=== PATIENT | male | born 1940 | race Caucasian/White ===

== ENCOUNTER 2021-03-25 20:56 | Emergency (ER) | payer MEDICARE, OTHER ==
[~2021-03-25] VITALS: Ht 177.8 cm; Wt 65.8 kg
--- NOTE | 2021-03-25 21:30 | NUR ---
CARMITARA PT C/O ABD PAIN/ DIARRHEA X 3 DAYS FROM ZOE
--- NOTE | 2021-03-25 21:50 | NUR ---
LABS COLLECTED AND SENT TO LAB
[2021-03-25 22:09] LABS: BASOPHILS # (AUTO) 0.1 K/uL (0.0-0.2); BASOPHILS % (AUTO) 0.5 % (0.0-2.0); EOSINOPHILS % (AUTO) 0.8 % (0.0-6.0); HEMATOCRIT 39 % (39-51); HEMOGLOBIN 12.9 g/dL (13.5-17.5); LYMPHOCYTES # (AUTO) 1.6 K/uL (0.8-4.8); LYMPHOCYTES % (AUTO) 13.4 % (20.0-44.0); MEAN CORPUSCULAR HGB CONC 33 g/dl (31.0-36.0); MEAN CORPUSCULAR VOLUME 88 fL (80-96); MONOCYTES # (AUTO) 1.1 K/uL (0.1-1.30); MONOCYTES % (AUTO) 8.7 % (2.0-12.0); NEUTROPHILS # (AUTO) 9.4 K/uL (1.8-8.9); NEUTROPHILS % (AUTO) 76.6 % (43.0-81.0); PLATELET COUNT (AUTO) 246 K/uL (150-450); RED BLOOD CELL COUNT(AUTO) 4.44 MIL/uL (4.5-6.0); WHITE BLOOD COUNT (AUTO) 12.2 K/uL (4.3-11.0)
[2021-03-25 22:23] LABS: CALCIUM, SERUM 9.2 mg/dL (8.5-10.1); CARBON DIOXIDE 26 mmol/L (21-32); CHLORIDE 102 mmol/L (98-107); CREATININE 0.9 mg/dL (0.6-1.3); GLUCOSE 183 mg/dL (74-106); POTASSIUM 4.3 mmol/L (3.5-5.1); SODIUM SERUM 140 mmol/L (136-145); UREA NITROGEN, BLOOD 30 mg/dL (7-18)
[2021-03-25 22:29] LABS: ALANINE AMINOTRANSFERASE 21 U/L (12-78); ALBUMIN 3.4 g/dL (3.4-5.0); ALKALINE PHOSPHATASE 148 U/L (46-116); ASPARTATE AMINOTRANSFERASE 30 U/L (15-37); BILIRUBIN,DIRECT 0.1 mg/dL (0.0-0.2); BILIRUBIN,TOTAL 0.6 mg/dL (0.2-1.0); LIPASE 74 U/L (73-393); TOTAL PROTEIN, SERUM 6.9 g/dL (6.4-8.2)
--- NOTE | 2021-03-25 22:40 | NUR ---
URINE COLLECTED AND SENT TO LAB
[2021-03-25] MEDS ORDERED: CT SWABBABLE VALVE TRANS SET 1 EA INFUS.SET MC ONE (22:56)
[2021-03-25] MEDS ORDERED: IV NS 0.9% 250 ML IV ONE (22:56)
[2021-03-25] MEDS ORDERED: IOHEXOL-300 100 ML VIAL IV ONE ×2 (22:56→23:19)
[2021-03-25 22:58] LABS: BILIRUBIN,URINE SMALL (NEGATIVE); COLOR,URINE YELLOW (YELLOW); LEUKOCYTE ESTERASE ,URINE NEGATIVE (NEGATIVE); NITRITE, URINE NEGATIVE (NEGATIVE); PROTEIN,URINE TRACE mg/dl (NEGATIVE); UGLUCOSE NEGATIVE (NEGATIVE); UROBILINOGEN,URINE 0.2 EU/dL (0.2)
[2021-03-25] MEDS ORDERED: IV LR 1000 ML 1,000 ML IV ONE (23:00)
--- NOTE | 2021-03-25 23:24 | NUR ---
PT OUT TO CT
[2021-03-25 23:48] LABS: BACTERIA,URINE None seen /HPF (None Seen); RBC,URINE 21-50 /HPF (0-2); SQUAMOUS EPITHELIAL CELL,UR Few /HPF (None Seen)
--- NOTE | 2021-03-25 23:50 | NUR ---
RECEIVED VERBALORDER FROM DR DAVID 2 MG MORPHINE IV X 1.
[2021-03-25] MEDS ORDERED: MORPHINE SULFATE INJ 2 MG/ML DISP.SYRIN ONE (23:54)
[2021-03-26] MEDS ORDERED: MORPHINE SULFATE INJ 2 MG/ML DISP.SYRIN IV ONE
--- NOTE | 2021-03-26 00:24 | NUR ---
CORRECTION FOR IV ADMINISTRATION: 1 LITER LR START TIME: 4 END TIME: 03/26/21 0024 1 LITER LR START TIME: 0156 END TIME: 255
[2021-03-26] MEDS ORDERED: IV LR 1000 ML 1,000 ML IV ONE (01:30)
[2021-03-26] MEDS ORDERED: ACET325T53 MC (02:20)
[2021-03-26] MEDS ORDERED: ONDANSETRON HCL/PF - ER 4 MG/2 ML VIAL IV ONE (02:30)
[2021-03-26] MEDS ORDERED: ONDANSETRON HCL/PF 4 MG/2 ML VIAL ONE (02:54)
--- NOTE | 2021-03-26 03:25 | NUR ---
POLO, CAREGIVER AT [facility] NOTIFIED THAT THE PT IS COMING BACK TO FACILITY
--- NOTE | 2021-03-26 03:38 | NUR ---
CALLED [facility] FOR TRANSPORTATION BACK HOME. ETA [phone]
[2021-03-26] MEDS ORDERED: hydrALAZINE HCL 10 MG TABLET PO ONE (05:30)
[2021-03-26] MEDS ORDERED: hydrALAZINE HCL 10 MG TABLET ONE (05:37)
--- NOTE | 2021-03-26 05:40 | NUR ---
Discharge instructions given with rx. pt left in stable condition
[2021-03-26 05:56] VITALS: BP 173/69
== END 2021-03-26 05:40 | disposition home or self-care (01) ==
LOC: ER 21:01
DX: R19.7 Diarrhea, unspecified (principal); R10.30 Lower abdominal pain, unspecified; E11.9 Type 2 diabetes mellitus without complications; I10 Essential (primary) hypertension
CPT/HCPCS: 36415; 74177; 80048; 80076; 81001; 83605; 83690; 85025; 87015; 87045; 87427 ×2; 87493; 96361 ×2; 96374; 96375; 99285; J2270; J2405 ×2; J7050; J7120 ×2; Q9967 ×2